=== PATIENT | female | born 1990 ===

== ENCOUNTER 2017-12-09 21:39 | Emergency (ER) | payer MEDICAID, OTHER ==
[2017-12-09 21:54] VITALS: BP 112/74; PULSE 82; RESP 20; TEMP 98.8; O2SAT 100
--- NOTE | 2017-12-09 22:49 | C.PDOC ---
History Of Present Illness 27 year old female presents to the ER with a complaint of moderate pain and swelling to the left ankle after she twisted it while walking today. Denies weakness or numbness. Time Seen by Provider: 12/09/17 21:56 Chief Complaint (Nursing): Lower Extremity Problem/Injury History Per: Patient History/Exam Limitations: no limitations Onset/Duration Of Symptoms: Hrs Current Symptoms Are (Timing): Still Present Recent travel outside of the [place]: No - Ankle/Foot Description Of Injury: Twisted Past Medical History Reviewed: Historical Data, Nursing Documentation, Vital Signs Vital Signs: Last Vital Signs Temp 98.8 F 12/09/17 21:52 Pulse 82 12/09/17 21:52 Resp 20 12/09/17 21:52 BP 112/74 12/09/17 21:52 Pulse Ox 100 12/09/17 21:52 Family History: States: Unknown Family Hx - Social History Hx Tobacco Use: No Hx Alcohol Use: No Hx Substance Use: No - Immunization History Hx Tetanus Toxoid Vaccination: No Hx Influenza Vaccination: No Hx Pneumococcal Vaccination: No Review Of Systems Musculoskeletal: Positive for: Other (Left ankle pain) Neurological: Negative for: Weakness, Numbness Physical Exam - Physical Exam Appears: Non-toxic Skin: Normal Color, Warm, Dry Head: Atraumatic, Normacephalic Eye(s): bilateral: Normal Inspection Extremity: Capillary Refill (<2 seconds), Other (Moderate tenderness and swelling to left lateral malleolus. ROM of left ankle limited due to pain.) Pulses: Left Dorsalis Pedis: Normal, Right Dorsalis Pedis: Normal Neurological/Psych: Oriented x3, Normal Speech, Normal Motor, Normal Sensation Gait: Other (Unable to bear weight on left foot) ED Course And Treatment O2 Sat by Pulse Oximetry: 100 (Room air) Pulse Ox Interpretation: Normal - Other Rad Left ankle x-ray X-Ray: Interpreted by Me, Viewed By Me Interpretation: Moderate soft tissue swelling, no acute fractures or dislocations. Progress Note: Left ankle x-ray ordered. Patient is resting comfortably in the ER in no acute distress, vitals are stable. Patient placed in cheng wrap and air cast for support. Pt instructed in crutch walking for support and nonm weight bearing x few days and discharged home with Rx and instructions to follow up with ortho/podiatry. Disposition Counseled Patient/Family Regarding: Diagnosis, Need For Followup, Rx Given - Disposition Referrals: Podiatry Clinic [Outside] [facility] ER [Outside] Disposition: HOME/ ROUTINE Disposition Time: 22:46 Condition: STABLE Additional Instructions: Please follow up with Podiatry or orthopedist Take motrin for pain Leg elevation Apply ICE to area Use CHENG wrap for support Return to ER if worse Prescriptions: Ibuprofen [Motrin] 600 mg PO Q6H #20 tab Instructions: Ankle Sprain (DC) Forms: [employer] ([employer]), Work Excuse - Clinical Impression Clinical Impression: Left ankle sprain - PA / [employer] / Resident Statement MD/DO has reviewed & agrees with the documentation as recorded. - Scribe Statement The provider has reviewed the documentation as recorded by the Scribluly Carroll All medical record entries made by the Octavianoibluly were at my direction and personally dictated by me. I have reviewed the chart and agree that the record accurately reflects my personal performance of the history, physical exam, medical decision making, and the department course for this patient. I have also personally directed, reviewed, and agree with the discharge instructions and disposition.
--- NOTE | 2017-12-10 09:40 | RAD ---
Date of service: 12/09/2017 PROCEDURE: Left Ankle Radiographs. HISTORY: R/O FX COMPARISON: None FINDINGS: BONES: Normal. No fracture. JOINTS: Normal. No osteoarthritis. Ankle mortise maintained. Talar dome intact SOFT TISSUES: Extensive lateral soft tissue swelling, nonspecific. Suspicious for lateral ligamentous injury. OTHER FINDINGS: None. IMPRESSION: Lateral soft tissue swelling. No acute fracture.
== END 2017-12-09 23:09 | disposition home or self-care (01) ==
LOC: C.ER 21:39
DX: S93.402A Sprain of unspecified ligament of left ankle, initial encounter (principal); X50.1XXA Overexertion from prolonged static or awkward postures, initial encounter; Y93.01 Activity, walking, marching and hiking